=== PATIENT | female | born 1955 | race American Indian/Alaskan Native ===

== ENCOUNTER 2018-10-19 06:39 | Day surgery (SDC) | payer MEDICARE ==
[2018-10-19 07:41] LABS: Basophils % (Auto) 0.2 % (0.0-1.8); Eosinophils % (Auto) 0.4 % (0.0-4.3); Hematocrit 34.7 % (30.3-42.9); Hemoglobin 10.9 gm/dl (10.1-14.3); Lymphocytes # (Auto) 1.3 K/mm3 (1.2-5.4); Lymphocytes % (Auto) 16.4 % (13.4-35.0); Mean Corpuscular HGB Conc 31 % (30-34); Mean Corpuscular Volume 84 fl (79-97); Monocytes # (Auto) 0.7 K/mm3 (0.0-0.8); Monocytes % (Auto) 8.2 % (0.0-7.3); Platelet Count 329 K/mm3 (140-440); Red Blood Count 4.13 M/mm3 (3.65-5.03); Red Cell Distribution Width 16.8 % (13.2-15.2)
[2018-10-19 07:51] LABS: INR 0.99 (0.87-1.13); Partial Thromboplastin Time 23.5 Sec. (24.2-36.6)
[2018-10-19] MEDS ORDERED: NACL 0.9% 500 ML 500 ML IV SCH (08:00)
[2018-10-19] MEDS ORDERED: ECOTRIN PO ONE (08:00)
[2018-10-19 08:30] LABS: BUN/Creatinine Ratio 24; Blood Urea Nitrogen 19 mg/dL (7-17); Calcium 9.8 mg/dL (8.4-10.2); Hemolysis Index 0
[2018-10-19] MEDS ORDERED: HEPARIN/NS 5000 UNIT/500ML(CATH LAB) 1,000 ML IR ONE (09:42)
[2018-10-19] MEDS ORDERED: VERSED ONE (09:43)
[2018-10-19] MEDS ORDERED: NITROGLYCERIN SYRINGE 3 ML ONE (09:43)
[2018-10-19] MEDS ORDERED: CALAN ONE (09:43)
[2018-10-19] MEDS ORDERED: HEPARIN 10,000 UNITS/10 ML ONE (09:43)
[2018-10-19] MEDS ORDERED: SUBLIMAZE ONE (09:43)
[2018-10-19] MEDS ORDERED: XYLOCAINE 2% INFILTRATI ONE (09:43)
--- NOTE | 2018-10-19 10:45 | Short Stay Summary ---
Short Stay Documentation Date of service: 10/19/18 - History H&P: obtained from office - Allergies and Medications Current Medications: Allergies No Known Allergies Allergy (Verified 10/19/18 07:40) Home Medications Medication Instructions Recorded Confirmed Last Taken Type Aspirin EC [Aspirin Enteric Coated 81 mg PO DAILY 10/19/18 10/19/18 10/18/18 History TAB] 81mg Furosemide [Lasix TAB] 40 mg PO QAM 10/19/18 10/19/18 10/18/18 History 40mg Lisinopril [Zestril] 40 mg PO DAILY 10/19/18 10/19/18 10/19/18 05:00 History 40mg Simvastatin [Zocor] 10 mg PO BID 10/19/18 10/19/18 10/19/18 05:00 History 10mg Verapamil HCl [Verapamil ER] 240 mg PO DAILY 10/19/18 10/19/18 10/19/18 05:00 History 240mg cloNIDine [Catapres] 0.1 mg PO BID 10/19/18 10/19/18 10/19/18 05:00 History hydrALAZINE [Apresoline TAB] 100 mg PO BID 10/19/18 10/19/18 10/19/18 05:00 History 100mg Active Medications Sodium Chloride (Nacl 0.9% 500 Ml) 500 mls @ 50 mls/hr IV DIRECT EVELYN Stop: 10/19/18 17:59 Last Admin: 10/19/18 08:29 Dose: 50 mls/hr Documented by: - Physical exam General appearance: no acute distress Integumentary: no rash HEENT: Atraumatic Breasts: deferred Heart: Regular rate Gastrointestinal: normal Female Genitourinary: deferred Rectal Exam: deferred Extremities: no ischemia Neurological: Normal gait - Brief post op/procedure progress note Date of procedure: 10/19/18 Pre-op diagnosis: Stable angina Post-op diagnosis: same Procedure: LHC and LV gram Anesthesia: MAC Findings: See report Surgeon: SARAH MICHAEL Estimated blood loss: none Pathology: none Condition: stable - Hospital course Hospital course: Uneventful - Disposition Condition at discharge: Good Disposition: DC-01 TO HOME OR SELFCARE Short Stay Discharge Plan Activity: advance as tolerated Weight Bearing Status: Weight Bear as Tolerated Diet: low fat, low cholesterol, low salt Wound: keep clean and dry Follow up with: BRITTANY TAMEZ MD [Other] - 7 Days
--- NOTE | 2018-10-19 10:55 | Cardiac Catherization Report ---
LEFT HEART CATHETERIZATION ORDERING PHYSICIAN: Darlene Juarez MD INDICATION: Stable angina, [place] class 3 and abnormal myocardial perfusion scan revealing a mid and basal reversible anterior wall defect. PROCEDURES PERFORMED: 1. Selective left and right coronary angiography. 2. Left ventriculography. DESCRIPTION OF PROCEDURE: After obtaining the consent, the patient was draped using sterile technique. A 2% lidocaine was injected into the right wrist. A 6-[place] vascular sheath was inserted into the right radial artery. A 6-[place] JL3.5 catheter was used to selectively engage the left coronary artery. A 6-[place] 3DRC catheter was used to selectively engage the right coronary artery. A 6-[place] JR4 catheter was used to hand inject the left ventriculogram. No complications occurred during the procedure. Hemostasis was achieved at the end of the procedure using manual pressure. SPECIMEN REMOVED: None. SEDATION: Administered was 1 mg of IV Versed and 50 mcg of IV fentanyl. Physician patient [id number] sedation start time 10:16 a.m. Physician patient [id number] sedation stop time 10:36 a.m. Total sedation time is 20 minutes. FINDINGS: HEMODYNAMICS: Aortic pressure 148/87. Left ventricular systolic pressure 143 mmHg and left ventricular end-diastolic pressure 24 mmHg. No significant gradient was noted across the left ventricular outflow tract. CARDIAC STRUCTURES: Left ventricular size is normal, and the left ventricular ejection fraction is estimated at 50%. CORONARY ANATOMY: 1. This is a right dominant circulation. 2. The left main is angiographically normal. 3. The LAD is angiographically normal. 4. The left circumflex artery is angiographically normal. 5. The right coronary artery is angiographically normal. IMPRESSION: 1. Angiographically normal coronary circulation. 2. Normal left ventricular size with an ejection fraction estimated at 50%. 3. LVEDP measured at 24 mmHg. RECOMMENDATIONS: Continue current management and follow up with referring physician. DISPOSITION: Home. CONDITION UPON DISCHARGE: Stable. JOB# [id number] TERESA/IGLESIA
[2018-10-19 14:01] VITALS: BP 136/64
== END 2018-10-19 14:20 | disposition home or self-care (01) ==
LOC: CATHLABREC 06:39
PROVIDERS: ATTEND Internal Medicine
DX: I20.8 Other forms of angina pectoris (principal); I10 Essential (primary) hypertension; E78.00 Pure hypercholesterolemia, unspecified; M19.90 Unspecified osteoarthritis, unspecified site; Z79.899 Other long term (current) drug therapy; Z79.82 Long term (current) use of aspirin; Z98.890 Other specified postprocedural states; Z82.49 Family history of ischemic heart disease and other diseases of the circulatory system
CPT/HCPCS: 36415; 80048; 85025; 85610; 85730; 93005; 93010; 93458; 99156; C1894; J1644; J2250; J3010; J7040; Q9967